=== PATIENT | female | born 1940 | race Caucasian/White ===

== ENCOUNTER 2016-05-04 19:03 | Inpatient (IN) | payer MEDICARE, OTHER ==
[~2016-05-04] VITALS: Ht 142.2 cm; Wt 56.4 kg
[~2016-05-04 19:03] MED LIST: ANXIETY; BLOOD PRESSURE MED; CHOLMIS5; CYCL1PAK PO; LORT7.5T3 PO; LORTA5 PO
[2016-05-04 19:15] VITALS: BP 154/92; PULSE 120; RESP 18; TEMP 100; O2SAT 96
[2016-05-04] MEDS ORDERED: cefTRIAXone INJ 1,000 MG in SODIUM CHLORIDE 0.9% INJ 100 ML IV ONE (19:45)
[2016-05-04] MEDS ORDERED: AZITHROMYCIN INJ 500 MG in SODIUM CHLOR 0.9% 250 ML INJ 250 ML IV ONE (19:45)
[2016-05-04] MEDS ORDERED: ACETAMINOPHEN 325 MG TAB PO ONE (19:45)
[2016-05-04] MEDS ORDERED: SODIUM CHLORIDE 0.9% FLUSH 5 ML FLUSH IVF PRN ×2 (19:45→22:00)
--- NOTE | 2016-05-04 19:45 | PD ---
HPI Chief Complaint: respiratory complaint Time Seen by Provider: 19:36 Travel History International Travel<30 days: No Contact w/Intl Traveler<30days: No Traveled to known affect area: No History of Present Illness HPI 75-year-old female presents to the emergency department by private transportation for 3 days of congested cough with associated chills and worsening symptoms. Patient's had rare posttussive emesis. Sputum has been clear area patient states approximately 3 weeks ago she had an upper respiratory infection symptoms resolved and then more recently has developed very congested cough and feels like she's developing an infection in her lungs. Patient denies chest pain. Patient does not report shortness of breath just ongoing congestion and cough that will not resolve. Patient does not report orthopnea or PND but does note dyspnea and worsening symptoms on exertion. No report of lower extremity pain or swelling. No history of clotting disorder, no long distance travel, no protracted bed rest, and no surgical procedure. Patient has history of hypertension, peripheral vascular disease, and smokes cigarettes. Patient is followed by Dr. gutierrez but has not contacted her primary per care provider to be evaluated. Patient rates discomfort as mild. PFSH Past Medical History Narrative Medical Arthritis anxiety dyslipidemia hypertension peripheral vascular disease; hemorrhoidectomy; tobaccoism, daily alcohol use; nursing notes reviewed Arthritis: Yes Anxiety: Yes High Cholesterol: Yes Diminished Hearing: No Hypertension: Yes Musculoskeletal: Yes ("BACK PROBLEMS") Menopausal: Yes Past Surgical History Genitourinary Surgery: Yes (HEMORRHOIDS) Social History Alcohol Use: Yes (2 DRINKS PER DAY) Tobacco Use: Yes (1 PPD) Substance Use: No Allergies-Medications (Allergen,Severity, Reaction): Coded Allergies: No Known Allergies (Unverified , 05/04/16) Reported Meds & Prescriptions Reported Meds & Active Scripts Active Reported Flexeril (Cyclobenzaprine HCl) 10 Mg Tab 10 Mg PO TID PRN Lortab (Hydrocodone-Acetaminophen) 7.5-325 Mg Tab 1 Tab PO Q8HR PRN Review of Systems Except as stated in HPI: all other systems reviewed are Neg General / Constitutional: Positive: Chills, No: Fever HENT: Positive: Congestion Cardiovascular: Positive: Dyspnea on exertion, No: Chest Pain or Discomfort, Diaphoresis, Edema Respiratory: Positive: Cough, Wheezing Gastrointestinal: Positive: Vomiting (rare posttussive), No: Nausea, Abdominal Pain Genitourinary: No: Dysuria, Flank Pain Musculoskeletal: No: Myalgias, Arthralgias, Cramping, Edema Skin: No Rash Neurologic: Positive: Weakness Psychiatric: No: Anxiety Endocrine: No: Heat Intolerance Hematologic/Lymphatic: No: Easy Bruising Physical Exam Narrative GENERAL: Well-developed well-nourished female in no acute distress no respiratory distress; triage vital signs T:100.0F, HR: 120; RR:18; O2sat: 96% RA ; BP: 154/92 SKIN: Warm and dry. HEAD: Normocephalic. EYES: No scleral icterus. No injection or drainage. NECK: Supple, trachea midline. No JVD or lymphadenopathy. CARDIOVASCULAR: Regular rate and rhythm without murmurs, gallops, or rubs. RESPIRATORY: Breath sounds equal bilaterally with right greater than left base crackles and wheezing. No accessory muscle use. GASTROINTESTINAL: Abdomen soft, non-tender, nondistended. MUSCULOSKELETAL: No cyanosis, or edema. BACK: Nontender without obvious deformity. No CVA tenderness. Data Data Last Documented VS Vital Signs Date Time Temp Pulse Resp B/P Pulse Ox O2 Delivery O2 Flow Rate FiO2 05/04/16 21:13 99.9 107 20 114/54 94 Room Air 05/04/16 20:50 2.00 05/04/16 20:03 21 Orders Complete Blood Count With Diff (05/04/16 19:36) Basic Metabolic Panel (Bmp) (05/04/16 19:36) Magnesium (Mg) (05/04/16 19:36) Troponin I (05/04/16 19:36) Urinalysis - C+S If Indicated (05/04/16 19:36) Influenzae A/B Antigen (05/04/16 19:36) Blood Culture (05/04/16 19:36) Iv Access Insert/Monitor (05/04/16 19:36) Electrocardiogram (05/04/16 19:36) Ecg Monitoring (05/04/16 19:36) Oximetry (05/04/16 19:36) Oxygen Administration (05/04/16 19:36) Chest, Single Ap (05/04/16 19:36) Sodium Chloride 0.9% Flush (Ns Flush) (05/04/16 19:45) Albuterol-Ipratropium Neb (Duoneb Neb) (05/04/16 19:45) Acetaminophen (Tylenol) (05/04/16 19:45) Ceftriaxone Inj (Rocephin Inj) (05/04/16 19:45) Azithromycin Inj (Zithromax Inj) (05/04/16 19:45) Ckmb (Isoenzyme) Profile (05/04/16 19:36) Methylprednisolone So Succ Inj (Solumedr (05/04/16 20:45) Albuterol-Ipratropium Neb (Duoneb Neb) (05/04/16 20:45) B-Type Natriuretic Peptide (05/04/16 20:36) Lactic Acid (05/04/16 20:36) Admit Order (Ed Use Only) (05/04/16 ) ^ Saline Lock (05/04/16 21:48) Resp Oxygen Papito C Titrat 1-4 L (05/04/16 ) ^ Notify Dr: Other (05/04/16 21:48) Sodium Chloride 0.9% Flush (Ns Flush) (05/05/16 09:00) Sodium Chloride 0.9% Flush (Ns Flush) (05/04/16 22:00) Labs Laboratory Tests Test 05/04/16 05/04/16 05/04/16 19:50 19:57 20:53 White Blood Count 6.5 TH/MM3 Red Blood Count 4.02 MIL/MM3 Hemoglobin 12.5 GM/DL Hematocrit 36.0 % Mean Corpuscular Volume 89.4 FL Mean Corpuscular Hemoglobin 31.1 PG Mean Corpuscular Hemoglobin 34.8 % Concent Red Cell Distribution Width 13.4 % Platelet Count 205 TH/MM3 Mean Platelet Volume 6.8 FL Neutrophils (%) (Auto) 68.9 % Lymphocytes (%) (Auto) 21.8 % Monocytes (%) (Auto) 7.6 % Eosinophils (%) (Auto) 1.5 % Basophils (%) (Auto) 0.2 % Neutrophils # (Auto) 4.5 TH/MM3 Lymphocytes # (Auto) 1.4 TH/MM3 Monocytes # (Auto) 0.5 TH/MM3 Eosinophils # (Auto) 0.1 TH/MM3 Basophils # (Auto) 0.0 TH/MM3 CBC Comment DIFF FINAL Differential Comment Sodium Level 139 MEQ/L Potassium Level 3.9 MEQ/L Chloride Level 103 MEQ/L Carbon Dioxide Level 28.4 MEQ/L Anion Gap 8 MEQ/L Blood Urea Nitrogen 10 MG/DL Creatinine 0.80 MG/DL Estimat Glomerular Filtration 70 ML/MIN Rate Random Glucose 99 MG/DL Calcium Level 8.6 MG/DL Magnesium Level 2.0 MG/DL Total Creatine Kinase 81 U/L Troponin I LESS THAN 0.02 NG/ML B-Type Natriuretic Peptide 8 PG/ML Urine Collection Type VOIDED Urine Color STRAW Urine Turbidity CLEAR Urine pH 7.0 Urine Specific [place] 1.007 Urine Protein NEG mg/dL Urine Glucose (UA) NEG mg/dL Urine Ketones NEG mg/dL Urine Occult Blood TRACE Urine Nitrite NEG Urine Bilirubin NEG Urine Leukocyte Esterase NEG Urine WBC 0-2 /hpf Urine Squamous Epithelial 0-5 /hpf Cells Microscopic Urinalysis Comment CULT NOT INDICATED Lactic Acid Level 1.3 mmol/L MDM Medical Decision Making Medical Screen Exam Complete: Yes Emergency Medical Condition: Yes Medical Record Reviewed: Yes Interpretation(s) EKG: Normal sinus rhythm rate [address] elevation or injury pattern change noted lactic acid: 1.3, not elevated ck: 81, not elevated; trop I: < 0.02, not elevated; bnp: 8, not elevated Last Impressions Chest X-Ray 05/04/16 193 Signed Impressions: Service Date/Time: April 19:44 - CONCLUSION: Minimal left base atelectasis. Qasim Moe MD CBC & BMP Diagram 05/04/16 19:50 UA: wnl Differential Diagnosis Bronchitis, pneumonia, influenza, CHF, ACS; also to consider PE Narrative Course Patient placed on cardiac monitor technician IV access obtained specimens collected and sent for resulting blood cultures obtained and presumptive IV antibiotic Rocephin and azithromycin administered along with acetaminophen and DuoNeb updrafts 2 Patient notes slight improvement after updraft treatment; chest x-ray shows atelectasis versus early infiltrate left base; total white cell count with automated differential within normal range; patient's O2 saturations increased to 90% on room air after updraft treatment therefore addition of supplemental oxygen 2 L per nasal cannula provided EKG sinus rhythm without acute injury pattern change Patient given additional DuoNeb updraft as well as Solu-Medrol 125 mg IV RA O2 sat--89% replaced on 2L./ NC; call placed to [facility] service for admission Critical Care Narrative Aggregate critical care time was 40 minutes. Time to perform other separately billable procedures was not included in the critical care time. My time did not include minutes spent treating any other patients simultaneously or on activities that did not directly contribute to the patient's treatment. The services I provided to this patient were to treat and/or prevent clinically significant deterioration that could result in: Respiratory failure, sepsis, I provided critical care services requiring my management, as noted below: Chart data review, documentation time, medication orders and management, vital sign assessments/reviewing monitor data, ordering and reviewing lab tests, ordering and interpreting/reviewing x-rays and diagnostic studies, care of the patient and discussion of the patient with the admitting physicians. Sepsis Criteria SIRS Criteria (2 or more): Heart rate over 90 Physician Communication Physician Communication discussed with [facility] MD, Dr Mayen, for admission Diagnosis Primary Impression: Dyspnea Qualified Code: R06.02 - Shortness of breath Additional Impressions: COPD (chronic obstructive pulmonary disease) Qualified Code: J44.0 - Chronic obstructive pulmonary disease with acute lower respiratory infection Atelectasis of left lung Admitting Information Admitting Physician Requests: Admit Geraldine Aguayo MD May 04, 2016 19:45
--- NOTE | 2016-05-04 19:58 | RADHPO ---
EXAM DATE/TIME: 05/04/2016 19:44 [place] COMPARISON: No previous studies available for comparison. INDICATIONS : Cough. MEDICAL HISTORY : Hypertension. SURGICAL HISTORY : None. ENCOUNTER: Initial ACUITY: 4 - 6 days PAIN SCORE: 0/10 LOCATION: Bilateral chest FINDINGS: Trace atelectasis left lung base. No pleural effusion. No pneumothorax. Heart size within normal limi ts. CONCLUSION: Minimal left base atelectasis. Qasim Moe MD on May 04, 2016 at 19:56 Board Certified Radiologist. This report was verified electronically.
[2016-05-04] MEDS: RESP: ALBUTEROL 2.5 MG/IPRATROPIUM 0.5 MG NEB (SCH) INH (20:02)
[2016-05-04 20:03] VITALS: O2SAT 95
[2016-05-04 20:12] LABS: AUTOMATED NEUTROPHIL # 4.5 TH/MM3 (1.8-7.7); BASOPHIL % 0.2 % (0.0-2.0); EOSINOPHIL # 0.1 TH/MM3 (0-0.4); EOSINOPHIL % 1.5 % (0.0-4.0); HEMO FLAGS DIFF FINAL; LYMPH % 21.8 % (9.0-44.0); LYMPHOCYTE # 1.4 TH/MM3 (1.0-4.8); MEAN CELL VOLUME 89.4 FL (80.0-100.0); MEAN CORPUSCULAR HEMOGLOBIN 31.1 PG (27.0-34.0); MEAN CORPUSCULAR HGB CONC 34.8 % (32.0-36.0); MONO % 7.6 % (0.0-8.0); NEUT % 68.9 % (16.0-70.0); PLATELET COUNT 205 TH/MM3 (150-450); RED BLOOD COUNT 4.02 MIL/MM3 (4.00-5.30); RED CELL DISTRIBUTION WIDTH 13.4 % (11.6-17.2); WHITE BLOOD COUNT 6.5 TH/MM3 (4.0-11.0)
[2016-05-04 20:14] LABS: BLOOD, URINE TRACE (NEG); GLUCOSE,URINE NEG (NEG); KETONE, URINE NEG (NEG); NITRITE,URINE NEG (NEG)
[2016-05-04 20:21] LABS: CHLORIDE 103 MEQ/L (98-107); POTASSIUM 3.9 MEQ/L (3.5-5.1); SODIUM (NA) 139 MEQ/L (136-145)
[2016-05-04 20:24] LABS: ANION GAP 8 MEQ/L (5-15); BICARBONATE 28.4 MEQ/L (21.0-32.0); BLOOD UREA NITROGEN 10 MG/DL (7-18)
[2016-05-04 20:25] VITALS: BP 167/67; PULSE 104; RESP 18; O2SAT 95
[2016-05-04 20:27] LABS: GLOMERULAR FILTRATION RATE 70 ML/MIN (>89)
[2016-05-04] MEDS ORDERED: RESP: ALBUTEROL 2.5 MG/IPRATROPIUM 0.5 MG NEB (SCH) NEB ONE (20:45)
[2016-05-04] MEDS ORDERED: methylPREDNISolone SOD SUCC 125 MG/2 ML VIAL IV PUSH ONE (20:45)
[2016-05-04 20:47] LABS: METHOD OF COLLECTION VOIDED; URINE COLOR STRAW (YELLW/STRAW)
[2016-05-04 20:48] LABS: COMMENT (UR) CULT NOT INDICATED; CULTURE IF INDICATED CULT NOT INDICATED; SQUAMOUS EPITHELIAL CELL URINE 0-5 /hpf (0-5); WBC, URINE 0-2 /hpf (0-5)
[2016-05-04 20:50] VITALS: O2SAT 95
[2016-05-04 21:01] LABS: CREATINE KINASE 81 U/L (26-192)
[2016-05-04] MEDS ORDERED: HYDR-3534 PO (21:08)
[2016-05-04] MEDS ORDERED: CYCL1TAB29 PO (21:08)
[2016-05-04 21:13] VITALS: BP 114/54; PULSE 107; RESP 20; TEMP 99.9; O2SAT 94
[2016-05-04] MEDS ORDERED: ONDANSETRON HCL 4 MG/2 ML VIAL IVP PRN (22:00)
[2016-05-04] MEDS ORDERED: BISACODYL 10 MG SUPP PR PRN (22:00)
[2016-05-04] MEDS ORDERED: RESP: ALBUTEROL 2.5 MG/IPRATROPIUM 0.5 MG NEB (PRN) NEB (22:00)
[2016-05-04] MEDS ORDERED: ACETAMINOPHEN 325 MG TAB PO PRN (22:00)
[2016-05-04] MEDS ORDERED: ACETAMINOPHEN/HYDROcodone 325 MG/5 MG TAB PO PRN (22:00)
[2016-05-04 22:50] VITALS: BP 120/52; PULSE 102; RESP 18; O2SAT 95
[2016-05-04] MEDS: BUDESONIDE-FORMOTEROL 160/4.5 MCG INHALER INH SCH (22:55)
[2016-05-05] VITALS (12 sets, daily range): BP systolic 95–157; BP diastolic 47–71; PULSE 76–115; RESP 16–22; TEMP 97.5–98.5; O2SAT 95–98
[2016-05-05] MEDS: methylPREDNISolone SOD SUCC 40 MG/1 ML VIAL IV PUSH SCH ×5 (00:15→23:01)
[2016-05-05] MEDS: SODIUM CHLORIDE 0.9% FLUSH 5 ML FLUSH FLUSH PRN (00:18)
[2016-05-05 06:32] LABS: AUTOMATED NEUTROPHIL # 3.4 TH/MM3 (1.8-7.7); BASOPHIL % 0.1 % (0.0-2.0); EOSINOPHIL % 0.1 % (0.0-4.0); HEMATOCRIT 32.8 % (35.0-46.0); HEMO FLAGS DIFF FINAL; LYMPHOCYTE # 0.5 TH/MM3 (1.0-4.8); MEAN CELL VOLUME 89.8 FL (80.0-100.0); MEAN CORPUSCULAR HEMOGLOBIN 29.6 PG (27.0-34.0); MONO % 1.8 % (0.0-8.0); PLATELET COUNT 211 TH/MM3 (150-450); RED BLOOD COUNT 3.66 MIL/MM3 (4.00-5.30); RED CELL DISTRIBUTION WIDTH 13.7 % (11.6-17.2)
[2016-05-05 06:40] LABS: CHLORIDE 107 MEQ/L (98-107); POTASSIUM 3.9 MEQ/L (3.5-5.1); SODIUM (NA) 143 MEQ/L (136-145)
[2016-05-05 06:46] LABS: ANION GAP 12 MEQ/L (5-15)
[2016-05-05 06:57] LABS: ALKALINE PHOSPHATASE 85 U/L (45-117); ALT (GPT) 25 U/L (10-53); AST (GOT) 12 U/L (15-37); BLOOD UREA NITROGEN 11 MG/DL (7-18); GLOMERULAR FILTRATION RATE 56 ML/MIN (>89); TOTAL BILIRUBIN ADULT 0.3 MG/DL (0.2-1.0)
[2016-05-05] MEDS: RESP: ALBUTEROL 2.5 MG/IPRATROPIUM 0.5 MG NEB (SCH) NEB ×4 (07:16→20:11)
[2016-05-05] MEDS ORDERED: SODIUM CHLORIDE 0.9% FLUSH 5 ML FLUSH IVF SCH (09:00)
[2016-05-05] MEDS: BUDESONIDE-FORMOTEROL 160/4.5 MCG INHALER INH SCH ×2 (09:02→20:47)
[2016-05-05] MEDS: guaiFENesin E.R. 600 MG TAB PO SCH ×2 (09:02→20:43)
[2016-05-05] MEDS: SODIUM CHLORIDE 0.9% FLUSH 5 ML FLUSH FLUSH SCH ×2 (09:02→20:43)
[2016-05-05] MEDS: ACETAMINOPHEN/HYDROcodone 325 MG/10 MG TAB PO PRN ×3 (09:23→23:05)
--- NOTE | 2016-05-05 12:13 | HHI.HP ---
cc: Roselyn Dick MD [facility] Roselyn Dick MD Admission Diagnosis dyspnea; exacerbation copd; LLL atelectasis/infiltrate Diagnoses: Chief Complaint: Shortness of breath Travel History International Travel<30 Days: No Contact w/Intl Traveler <30 Da: No Traveled to Known Affected Are: No History of Present Illness Patient is a 75-year-old female with relatively good medical health she does smoke and has done at least a pack a day for the last 60 years. For the last 2B she has been having increased shortness of breath and productive cough with occasional chest pain while coughing. The discomfort became too great and she felt she couldn't breathe so she came to the hospital. She has never been diagnosed with COPD however has multiple signs and symptoms of COPD. Patient continues to smoke. She has gotten better with bronchodilators and steroids here. She's been on empiric antibiotics. Her oxygenation is improved however the patient's airflow is still compromised. For these reasons the patient is admitted to the hospital Review of Systems Constitutional: DENIES: Diaphoretic episodes, Fatigue, Fever, Weight gain, Weight loss, Chills, Dizziness, Change in appetite, Night Sweats Endocrine: DENIES: Abnorml menstrual pattern, Heat/cold intolerance, Polydipsia , Polyuria, Polyphagia Eyes: DENIES: Blurred vision, Diplopia, Eye inflammation, Eye pain, Vision loss , Photosensitivity, Double Vision Ears, nose, mouth, throat: DENIES: Tinnitus, Hearing loss, Vertigo, Nasal discharge, Oral lesions, Throat pain, Hoarseness, Ear Pain, Running Nose, Epistaxis, Sinus Pain, Toothache, Odynophagia Respiratory: COMPLAINS OF: Cough, Sputum production, Shortness of breath Cardiovascular: COMPLAINS OF: Chest pain Gastrointestinal: DENIES: Abdominal pain, Black stools, Bloody stools, Constipation, Diarrhea, Nausea, Vomiting, Difficulty Swallowing, Anorexia Genitourinary: DENIES: Abnormal vaginal bleeding, Dysmenorrhea, Dyspareunia, Sexual dysfunction, Urinary frequency, Urinary incontinence, Urgency, Hematuria , Dysuria, Nocturia, Vaginal discharge Musculoskeletal: DENIES: Joint pain, Muscle aches, Stiffness, Joint Swelling, Back pain, Neck pain Integumentary: DENIES: Abnormal pigmentation, Pruritus, Rash, Nail changes, Breast masses, Breast skin changes, Nipple discharge Hematologic/lymphatic: DENIES: Bruising, Lymphadenopathy Immunologic/allergic: DENIES: Eczema, Urticaria Neurologic: DENIES: Abnormal gait, Headache, Localized weakness, Paresthesias, Seizures, Speech Problems, Tremor, Poor Balance Psychiatric: DENIES: Anxiety, Confusion, Mood changes, Depression, Hallucinations, Agitation, Suicidal Ideation, Homicidal Ideation, Delusions Past Family Social History Past Medical History Denies Past Surgical History Hemorrhoidectomy Reported Medications Reviewed in the medical record Allergies: Coded Allergies: No Known Allergies (Unverified , 05/04/16) Active Ordered Medications Reviewed in the medical record Family History Mother from lung cancer was a smoker, father from liver cancer and wants alcoholic, brother has COPD Social History Smokes about a pack a day for 60 years, still working, lives with her family, alcohol daily Physical Exam Vital Signs Vital Signs Date Time Temp Pulse Resp B/P Pulse Ox O2 Delivery O2 Flow Rate FiO2 05/05/16 08:00 98.4 96 20 157/71 96 05/05/16 07:50 93 20 124/54 96 Nasal Cannula 1 05/05/16 07:23 75 20 97 Nasal Cannula 1 05/05/16 07:23 97 Nasal Cannula 1 05/05/16 07:17 97 Nasal Cannula 2.00 05/05/16 07:01 76 20 109/53 97 2 05/05/16 06:00 82 18 113/67 98 Nasal Cannula 2 05/05/16 06:00 18 98 Nasal Cannula 2 05/05/16 05:00 80 18 95/47 98 Nasal Cannula 2 05/05/16 04:00 18 98 Nasal Cannula 2 05/05/16 03:04 98.0 93 18 100/52 97 Nasal Cannula 2 05/05/16 02:00 18 98 Room Air 05/05/16 01:03 14 05/05/16 00:50 91 16 114/56 96 Nasal Cannula 2 05/05/16 00:10 91 16 96 Nasal Cannula 2 05/04/16 22:50 102 18 120/52 95 Nasal Cannula 2 05/04/16 21:13 99.9 107 20 114/54 94 Room Air 05/04/16 20:50 95 Nasal Cannula 2.00 05/04/16 20:30 90 Nasal Cannula 2 05/04/16 20:25 104 18 167/67 95 Nasal Cannula 2 05/04/16 20:25 18 95 Nasal Cannula 2 05/04/16 20:03 95 21 05/04/16 19:45 20 96 Room Air 05/04/16 19:15 100.0 120 18 154/92 96 Physical Exam GENERAL: This is a well-nourished, well-developed patient, in no apparent distress. SKIN: No rashes, ecchymoses or lesions. Cool and dry. HEAD: Atraumatic. Normocephalic. No temporal or scalp tenderness. EYES: Pupils equal round and reactive. Extraocular motions intact. No scleral icterus. No injection or drainage. ENT: Nose without bleeding, purulent drainage or septal hematoma. Throat without erythema, tonsillar hypertrophy or exudate. Uvula midline. Airway patent. NECK: Trachea midline. No JVD or lymphadenopathy. Supple, nontender, no meningeal signs. CARDIOVASCULAR: Regular rate and rhythm without murmurs, gallops, or rubs. RESPIRATORY: Decreased air flow bilaterally with scattered wheezes GASTROINTESTINAL: Abdomen soft, non-tender, nondistended. No hepato-splenomegaly , or palpable masses. No guarding. MUSCULOSKELETAL: Extremities without clubbing, cyanosis, or edema. No joint tenderness, effusion, or edema noted. No calf tenderness. Negative Homans sign bilaterally. NEUROLOGICAL: Awake and alert. Cranial nerves II through XII intact. Motor and sensory grossly within normal limits. Five out of 5 muscle strength in all muscle groups. Normal speech. Laboratory Laboratory Tests Test 05/04/16 05/04/16 05/04/16 05/05/16 19:50 19:57 20:53 06:05 White Blood Count 6.5 4.0 Red Blood Count 4.02 3.66 Hemoglobin 12.5 10.8 Hematocrit 36.0 32.8 Mean Corpuscular Volume 89.4 89.8 Mean Corpuscular Hemoglobin 31.1 29.6 Mean Corpuscular Hemoglobin 34.8 33.0 Concent Red Cell Distribution Width 13.4 13.7 Platelet Count 205 211 Mean Platelet Volume 6.8 6.9 Neutrophils (%) (Auto) 68.9 86.0 Lymphocytes (%) (Auto) 21.8 12.0 Monocytes (%) (Auto) 7.6 1.8 Eosinophils (%) (Auto) 1.5 0.1 Basophils (%) (Auto) 0.2 0.1 Neutrophils # (Auto) 4.5 3.4 Lymphocytes # (Auto) 1.4 0.5 Monocytes # (Auto) 0.5 0.1 Eosinophils # (Auto) 0.1 0.0 Basophils # (Auto) 0.0 0.0 CBC Comment DIFF FINAL DIFF FINAL Differential Comment Sodium Level 139 143 Potassium Level 3.9 3.9 Chloride Level 103 107 Carbon Dioxide Level 28.4 24.0 Anion Gap 8 12 Blood Urea Nitrogen 10 11 Creatinine 0.80 0.98 Estimat Glomerular Filtration 70 56 Rate Random Glucose 99 239 Calcium Level 8.6 7.9 Magnesium Level 2.0 Total Creatine Kinase 81 Troponin I LESS THAN 0.02 B-Type Natriuretic Peptide 8 Urine Collection Type VOIDED Urine Color STRAW Urine Turbidity CLEAR Urine pH 7.0 Urine Specific [facility] 1.007 Urine Protein NEG Urine Glucose (UA) NEG Urine Ketones NEG Urine Occult Blood TRACE Urine Nitrite NEG Urine Bilirubin NEG Urine Leukocyte Esterase NEG Urine WBC 0-2 Urine Squamous Epithelial 0-5 Cells Microscopic Urinalysis Comment CULT NOT INDICATED Lactic Acid Level 1.3 Total Bilirubin 0.3 Aspartate Amino Transf 12 (AST/SGOT) Alanine Aminotransferase 25 (ALT/SGPT) Alkaline Phosphatase 85 Total Protein 6.5 Albumin 3.1 Date/Time Procedure Status Source Growth 05/04/16 20:05 Aerobic Blood Culture - Preliminary Resulted Blood Peripheral NO GROWTH IN 1 DAY 05/04/16 20:05 Anaerobic Blood Culture - Preliminary Resulted Blood Peripheral NO GROWTH IN 1 DAY 05/04/16 19:50 Influenza Types A,B Antigen (CHRISTIANO) - Final Complete Nasal Washing NEGATIVE FOR FLU A AND B ANTIGEN.... Result Diagram: 05/05/1660405/05/16604 Imaging Last Impressions Chest X-Ray 05/04/161935 Signed Impressions: Service Date/Time: April 19:44 - CONCLUSION: Minimal left base atelectasis. Qasim Moe MD Assessment and Plan Problem List: (1) COPD (chronic obstructive pulmonary disease) ICD Code: J44.9 Status: Acute Plan: With steroids, nebulized bronchodilators, patient education. IV Antibiotics (Rocephin/azithromycin) empirically. Patient is advised to discontinue tobacco. follow up echo, ABG Physician Certification 2 Midnight Certification Type: Admission for Inpatient Services Order for Inpatient Services The services are ordered in accordance with Medicare regulations or non- Medicare payer requirements, as applicable. In the case of services not specified as inpatient-only, they are appropriately provided as inpatient services in accordance with the 2-midnight benchmark. Estimated LOS (days): 3 3 days is the estimated time the patient will need to remain in the hospital, assuming treatment plan goals are met and no additional complications. Post-Hospital Plan: Home Problem Qualifiers (1) COPD (chronic obstructive pulmonary disease): Qualified Code: J44.0 - Chronic obstructive pulmonary disease with acute lower respiratory infection Robina Pimentel MD May 05, 2016 12:12
[2016-05-05] MEDS: CYCLOBENZAPRINE HCL 10 MG TAB PO PRN ×2 (13:02→23:05)
[2016-05-05 13:30] LABS: BLOOD GAS BASE EXCESS -5.5 mmol/L (-2-2); BLOOD GAS CARBOXYHEMOGLOBIN 1.1 % (0-4); BLOOD GAS HCO3 18 mmol/L (22-26); BLOOD GAS METHEMOGLOBIN 0.8 % (0-2); BLOOD GAS O2 HGB SATURATION 95 % (90-100); BLOOD GAS OXYGEN CONTENT 15.2 Vol % (12.0-20.0); BLOOD GAS PCO2 27 mmHg (38-42); BLOOD GAS PO2 77 mmHg (61-120); BLOOD GAS TOTAL HGB 11.4 G/DL (12.0-16.0)
[2016-05-05 13:31] LABS: CRITICAL VALUE NO; DRAW SITE RT RADIAL; FIO2 21 %; NUMBER OF ARTERIAL PUNCTURES 1; OXYGEN DEVICE ROOM AIR; STAT NO; ULNAR PULSE PRESENT
--- NOTE | 2016-05-05 19:01 | EC ---
Study Study Date:05/05/2016 STUDY CONCLUSIONS SUMMARY - Left ventricle: The cavity size was normal. Wall thickness was increased in a pattern of mild LVH. Systolic function was vigorous. The estimated ejection fraction was in the range of 65% to 70%. Wall motion was normal; there were no regional wall motion abnormalities. - Aortic valve: Valve area: 2.86cm^2(VTI). Valve area: 2.25cm^2 (Vmax). - Tricuspid valve: Mild regurgitation. - Pulmonary arteries: PA peak pressure: 49mm Hg (S). If LV function is below 40, please consider prescribing an ACEI or ARB or document rationale for non-use. PROCEDURE DATA STUDY STATUS: Elective. Procedure: Transthoracic echocardiography. Image quality was good. Scanning was performed from the parasternal, apical, and subcostal acoustic windows. Study completion: The patient tolerated the procedure well. Transthoracic echocardiography. M-mode, complete 2D, complete spectral Doppler, and color Doppler. Height: Height: 56in. Weight: Weight: 127.7lb. Body mass index: BMI: 28.7kg/m^2. Body surface area: BSA: 1.47m^2. Patient status: Inpatient. CARDIAC ANATOMY LEFT VENTRICLE: The cavity size was normal. Wall thickness was increased in a pattern of mild LVH. Systolic function was vigorous. The estimated ejection fraction was in the range of 65% to 70%. Wall motion was normal; there were no regional wall motion abnormalities. AORTIC VALVE: Trileaflet; normal thickness leaflets. Doppler: Transvalvular velocity was within the normal range. There was no stenosis. No regurgitation. Valve area: 2.86cm^2(VTI). Indexed valve area: 1.95cm^2/m^2 (VTI). Valve area: 2.25cm^2 (Vmax). Indexed valve area: 1.53cm^2/m^2 (Vmax). Mean gradient: 7mm Hg (S). Peak gradient: 14mm Hg (S). AORTA: Aortic root: The aortic root was normal in size. MITRAL VALVE: Structurally normal valve. Doppler: Transvalvular velocity was within the normal range. There was no evidence for stenosis. No regurgitation. Peak gradient: 2mm Hg (D). LEFT ATRIUM: The atrium was normal in size. RIGHT VENTRICLE: The cavity size was normal. Wall thickness was normal. PULMONIC VALVE: Doppler: Transvalvular velocity was within the normal range. There was no evidence for stenosis. No regurgitation. TRICUSPID VALVE: Structurally normal valve. Doppler: Transvalvular velocity was within the normal range. Mild regurgitation. PULMONARY ARTERY: The main pulmonary artery was normal-sized. Systolic pressure was within the normal range. RIGHT ATRIUM: The atrium was normal in size. PERICARDIUM: There was no pericardial effusion. SYSTEMIC VEINS: Inferior vena cava: The vessel was normal in size. Patient weight: 127.7lb _Ejection fraction:_ 65-75% _Fractional shortening:_ 32% up to 5Kg 5-11.5Kg 11.6-22.9Kg 23-45Kg 45-57Kg Aortic Root 7-13 <17 13-22 17-27 17-27 LA diam 6-13 <23 24-38 33-47 37-40 RVID 10-17 7-15 7-15 7-18 8-17 LVIDd 12-22 <32 24-38 33-47 37-40 LVPW 2-4 3-6 5-7 6-8 7-8 IVS 2-4 3-6 5-7 6-8 7-8 BASIC MEASUREMENTS ADULT NORMAL Left ventricle LV internal dimension, ED, chordal *37 mm 43-52 level, PLAX LV internal dimension, ES, chordal *21.8 mm 23-38 level, PLAX Fractional shortening, chordal level, 41 % >29 PLAX LV posterior wall thickness, ED 11.8 mm IVS/LVPW ratio, ED 0.98 <1.3 Ventricular septum Septal thickness, ED 11.6 mm Aortic valve Leaflet separation *14 mm 15-26 Aorta Root diameter, ED 30 mm Left atrium Anterior-posterior dimension 31 mm Anterior-posterior dimension index 2.11 cm/m^2 <2.2 BASIC MEASUREMENTS ADULT NORMAL Aortic valve Leaflet separation *14 mm 15-26 DOPPLER MEASUREMENTS ADULT NORMAL Main pulmonary artery Pressure, S *49 mm Hg =30 Aortic valve Peak velocity, S 185 cm/s Mean velocity, S 112 cm/s VTI, S 24.4 cm Mean gradient, S 7 mm Hg Peak gradient, S 14 mm Hg Valve area, VTI 2.86 cm^2 Valve area index, VTI 1.95 cm^2/m^2 Valve area, Vmax 2.25 cm^2 Valve area index, Vmax 1.53 cm^2/m^2 Mitral valve Peak E-wave velocity 72.1 cm/s Peak A-wave velocity 130 cm/s Deceleration time *106 ms 150-230 Peak gradient, D 2 mm Hg Peak E/A ratio 0.6 Tricuspid valve Regurgitant peak velocity 227 cm/s Peak RV-RA gradient, S 21 mm Hg Maximal regurgitant velocity 227 cm/s Systemic veins Estimated CVP 10 mm Hg Right ventricle RV pressure, S *54 mm Hg <30 Pulmonic valve Peak velocity, S 109 cm/s LEGEND: Mean values are shown as u=mean value. Asterisk (*) austin values outside specified normal range. Prepared and signed by Adriano Gonzales [id number]
--- NOTE | 2016-05-05 19:43 | EKG ---
Date Performed: 05/04/2016 Time Performed: 19:45:00 PTAGE: 75 years EKG: Sinus rhythm Normal ECG PREVIOUS TRACING : 06/13/2010 11.50 Compared to prior tracing no significant change DOCTOR: Rahul Garcia Interpretating Date/Time 05/05/2016 19:41:38
[2016-05-05] MEDS ORDERED: cefTRIAXone INJ 1,000 MG in SODIUM CHLORIDE 0.9% INJ 100 ML IV SCH (21:00)
[2016-05-05] MEDS ORDERED: AZITHROMYCIN INJ 500 MG in SODIUM CHLOR 0.9% 250 ML INJ 250 ML IV SCH (21:00)
[2016-05-06 00:40] VITALS: BP 117/53; PULSE 101; RESP 18; TEMP 97.9; O2SAT 94
[2016-05-06 04:00] VITALS: BP 120/62; PULSE 90; RESP 16; TEMP 97.5; O2SAT 93
[2016-05-06] MEDS: methylPREDNISolone SOD SUCC 40 MG/1 ML VIAL IV PUSH SCH ×2 (05:33→12:05)
[2016-05-06] MEDS: SODIUM CHLORIDE 0.9% FLUSH 5 ML FLUSH FLUSH PRN (05:33)
[2016-05-06 08:00] VITALS: BP 139/86; PULSE 101; RESP 24; TEMP 99.5; O2SAT 98
[2016-05-06] MEDS: RESP: ALBUTEROL 2.5 MG/IPRATROPIUM 0.5 MG NEB (SCH) NEB ×2 (08:11→11:18)
[2016-05-06 08:13] VITALS: O2SAT 94
[2016-05-06] MEDS: BUDESONIDE-FORMOTEROL 160/4.5 MCG INHALER INH SCH (08:42)
[2016-05-06] MEDS: SODIUM CHLORIDE 0.9% FLUSH 5 ML FLUSH FLUSH SCH (08:42)
[2016-05-06] MEDS: guaiFENesin E.R. 600 MG TAB PO SCH (08:42)
[2016-05-06] MEDS: ACETAMINOPHEN/HYDROcodone 325 MG/10 MG TAB PO PRN (08:46)
[2016-05-06] MEDS: CYCLOBENZAPRINE HCL 10 MG TAB PO PRN (08:49)
[2016-05-06] MEDS ORDERED: VENTAER INH (10:01)
[2016-05-06] MEDS ORDERED: NEBULIZER1 MI1 (10:01)
[2016-05-06] MEDS ORDERED: PRED20 PO (10:01)
[2016-05-06] MEDS ORDERED: ALBU0.08 NEB (10:01)
[2016-05-06] MEDS ORDERED: LEVO500T3 PO (10:01)
--- NOTE | 2016-05-06 10:05 | HHI.DS ---
cc: Roselyn Dick MD Discharge Summary Admission Date May 04, 2016 at 21:49 Discharge Date: May 06, 2016 Admitting Diagnosis dyspnea; exacerbation copd; LLL atelectasis/infiltrate (1) COPD (chronic obstructive pulmonary disease) ICD Code: J44.9 Procedures none Brief History - From Admission Patient is a 75-year-old female with relatively good medical health she does smoke and has done at least a pack a day for the last 60 years. For the last 2B she has been having increased shortness of breath and productive cough with occasional chest pain while coughing. The discomfort became too great and she felt she couldn't breathe so she came to the hospital. She has never been diagnosed with COPD however has multiple signs and symptoms of COPD. Patient continues to smoke. She has gotten better with bronchodilators and steroids here. She's been on empiric antibiotics. Her oxygenation is improved however the patient's airflow is still compromised. For these reasons the patient is admitted to the hospital CBC/BMP: 05/05/16 0605 05/05/16 0605 Significant Findings ECHO PA pressure elevated, right sided dilation otherwise wnl Laboratory Tests Test 05/04/16 05/04/16 05/05/16 05/05/16 19:50 19:57 06:05 13:28 Mean Platelet Volume 6.8 FL 6.9 FL (7.0-11.0) (7.0-11.0) Estimat Glomerular Filtration 70 ML/MIN (>89) 56 ML/MIN (>89) Rate Troponin I LESS THAN 0.02 NG/ML (0.02-0.05) Urine Occult Blood TRACE (NEG) Red Blood Count 3.66 MIL/MM3 (4.00-5.30) Hemoglobin 10.8 GM/DL (11.6-15.3) Hematocrit 32.8 % (35.0-46.0) Neutrophils (%) (Auto) 86.0 % (16.0-70.0) Lymphocytes # (Auto) 0.5 TH/MM3 (1.0-4.8) Random Glucose 239 MG/DL (74-106) Calcium Level 7.9 MG/DL (8.5-10.1) Aspartate Amino Transf 12 U/L (15-37) (AST/SGOT) Albumin 3.1 GM/DL (3.4-5.0) Blood Gas HCO3 18 mmol/L (22-26) Blood Gas Base Excess -5.5 mmol/L (-2-2) Arterial Blood pH 7.44 (7.380-7.420) Arterial Blood Partial 27 mmHg (38-42) Pressure CO2 Blood Gas Hemoglobin 11.4 G/DL (12.0-16.0) Imaging Last Impressions Chest X-Ray 05/04/161935 Signed Impressions: Service Date/Time: April 19:44 - CONCLUSION: Minimal left base atelectasis. Qasim Moe MD PE at Discharge GENERAL: This is a well-nourished, well-developed patient, in no apparent distress. CARDIOVASCULAR: Regular rate and rhythm without murmurs, gallops, or rubs. RESPIRATORY: Clear to auscultation. Breath sounds equal bilaterally. No wheezes , rales, or rhonchi. GASTROINTESTINAL: Abdomen soft, non-tender, nondistended. Normal active bowel sounds MUSCULOSKELETAL: Extremities without clubbing, cyanosis, or edema. NEURO: Alert & Oriented x4 to person, place, time, situation. Moves all ext x4 Pt update on day of discharge Patient seen and evaluated today in follow-up for treatment for pneumonia/ bronchitis and probable underlying COPD. Pulmonary artery pressure elevated with some right sided heart dysfunction on echo noted and discussed with patient. Patient will need outpatient alert function testing done to confirm diagnosis: COPD. Otherwise no events overnight. Walk test pending Hospital Course Patient is a 75-year-old female with a known history of tobacco dependency. She has been admitted to the hospital for increasing dyspnea and shortness of breath and some have bronchitis/pneumonia for which she is treated with IV as well as for probable COPD with IV steroids and nebulizer bronchodilator treatments. Patient is remarkably well and is overall improved. Discharge plans discussed with patient at bedside. Pt Condition on Discharge: Good Discharge Disposition: Discharge Home Discharge Time: > 30 minutes Discharge Instructions DIET: Follow Instructions for: As Tolerated, No Restrictions Follow up Referrals: PCP Follow-up - 1 Week New Medications: Albuterol 18 GM Inh (Ventolin Hfa 18 GM Inh) 90 Mcg/Act Aer 2 PUFF INH Q4H PRN SHORTNESS OF BREATH #1 Ref 0 INHALER Albuterol Neb (Albuterol Neb) 2.5 Mg/3 Ml Neb 2.5 MG NEB Q4HR NEB PRN SHORTNESS OF BREATH #60 Ref 0 NEBULE Levofloxacin (Levofloxacin) 500 Mg Tab 500 MG PO DAILY Infection #5 Ref 0 TAB Nebulizer (Nebulizer) 1 Mis Mis 1 EA .ROUTE DIRECTED Breathing Treatment #1 Ref 0 EA Prednisone (Prednisone) 20 Mg Tab 20 MG PO DIRECTED 40 MG twice a day x 3 days, then 20 MG daily x 3 days, then 10 MG daily x 3 days Inflammation #11 Ref 0 TAB Continued Medications: Cyclobenzaprine (Flexeril) 10 Mg Tab 10 MG PO TID PRN MUSCLE SPASM #90 Ref 0 TAB Hydrocodone-Acetaminophen (Lortab) 7.5-325 Mg Tab 1 TAB PO Q8HR PRN PAIN Ref 0 TAB Robina Pimentel MD May 06, 2016 10:05
[2016-05-06 12:00] VITALS: BP 137/68; PULSE 115; RESP 20; TEMP 96.3; O2SAT 97
== END 2016-05-06 13:41 | disposition home or self-care (01) | DRG 190 ==
LOC: PHED 19:03 → PHEDA 21:49 → PHEDH 05-05 01:49 → PH3A 05-05 08:15
PROVIDERS: ADMIT Hospitalist; ATTEND Hospitalist
DX: J44.0 Chronic obstructive pulmonary disease with (acute) lower respiratory infection (principal); J18.9 Pneumonia, unspecified organism; J98.11 Atelectasis; I10 Essential (primary) hypertension; I73.9 Peripheral vascular disease, unspecified; E78.5 Hyperlipidemia, unspecified; M19.90 Unspecified osteoarthritis, unspecified site; F41.9 Anxiety disorder, unspecified; F17.210 Nicotine dependence, cigarettes, uncomplicated
CPT/HCPCS: 36600; 71010; 80048; 80053; 81001; 82550; 82805; 83605; 83735; 83880; 84484; 85025; 87040; 87804; 93005; 93306; 94640; 94664; 96365; 96367; 96375; J0456; J0696; J2920; J2930; J7050